=== PATIENT | female | born 1960 | race African-American/Black ===

== ENCOUNTER 2019-03-17 09:42 | Emergency (ER) | payer OTHER ==
[~2019-03-17] VITALS: Ht 167.6 cm; Wt 71.8 kg
[2019-03-17] MEDS ORDERED: LISI-660 PO (09:55)
[2019-03-17 10:52] LABS: INFLUENZA TYPE A NEGATIVE FOR TYPE A (NEGATIVE); INFLUENZA TYPE B NEGATIVE FOR TYPE B (NEGATIVE)
[2019-03-17] MEDS ORDERED: DEXAMETHASONE 4 MG TABLET PO ONE (13:00)
[2019-03-17 13:17] VITALS: BP 134/78
== END 2019-03-17 13:21 | disposition home or self-care (01) ==
LOC: EMS 09:42
DX: J11.1 Influenza due to unidentified influenza virus with other respiratory manifestations (principal); I10 Essential (primary) hypertension; Z90.49 Acquired absence of other specified parts of digestive tract; Z79.899 Other long term (current) drug therapy
CPT/HCPCS: 87430; 87804; 99283; J8540

== ENCOUNTER 2024-01-19 22:34 | Emergency (ER) | payer OTHER ==
[~2024-01-19] VITALS: Ht 160 cm; Wt 75.0 kg
[~2024-01-19 22:34] MED LIST: LISI-892 PO
[2024-01-19 22:49] VITALS: BP 142/102; PULSE 73; RESP 16; TEMP 98.1
[2024-01-20] MEDS ORDERED: PERM60CR19 TP (00:54)
[2024-01-20] MEDS ORDERED: SULF-261 PO (00:54)
[2024-01-20] MEDS: DEXAMETHASONE 4 MG TABLET PO ONE (00:59)
[2024-01-20] MEDS: LIDOCAINE/PF 1% 2 ML VIAL IM ONE (01:00)
[2024-01-20] MEDS: CefTRIAXone SODIUM 1 GM/VIAL IM ONE (01:00)
== END 2024-01-20 01:19 | disposition home or self-care (01) ==
LOC: EMS 22:34
DX: L03.116 Cellulitis of left lower limb (principal); B86 Scabies; I10 Essential (primary) hypertension; Z90.49 Acquired absence of other specified parts of digestive tract
CPT/HCPCS: 99283; 96372; J0696; J8540; J3490